=== PATIENT | male | born 1950 | race Caucasian/White ===

== ENCOUNTER → 2018-06-04 | Day surgery (SDC) | payer MEDICARE, BC ==
[~2018-06-04] MED LIST: Lactated Ringers 1,000 ML IV SCH; Propofol 200 MG/20 ML SDV IV ONE
[2018-06-04 10:59] VITALS: BP 123/64
--- NOTE | 2018-06-07 09:34 | OR ---
DATE OF OPERATION: 06/04/2018 PREOPERATIVE DIAGNOSIS: 1. GASTROESOPHAGEAL REFLUX DISEASE. 2. HISTORY OF COLON POLYPS. POSTOPERATIVE DIAGNOSIS: 1. GASTROESOPHAGEAL REFLUX DISEASE. 2. HISTORY OF COLON POLYPS. SURGEON: Obinna Reid MD PROCEDURE: 1. DIAGNOSTIC EGD WITH STANLEY. 2. DIAGNOSTIC COLONOSCOPIES WITH SNARE POLYPECTOMY X2. ANESTHESIA: MAC via CHEMISTRY TEACHER. COMPLICATIONS: None. SPECIMEN: 1. Antral STANLEY. 2. Two tubular adenomas, each less than 0.5 cm, see report. FINDINGS: 1. Normal full-length EGD. 2. Full-length colonoscopy. 3. Left-sided diverticulosis, moderate. 4. Tubular adenoma x2, each less than 0.5 cm. RECOMMENDATIONS: Medical therapy for patient's reflux. Recommend a 5-year followup colonoscopy given 2 polyps being removed. INDICATIONS: The patient has been having ongoing issues with reflux. Dr. French ordered diagnostic EGD. He also has a history of colon polyps. He is due for a 5-year followup scope. DESCRIPTION OF PROCEDURE: The patient was prepped and draped, placed in the left lateral decubitus position. A lubricated Olympus gastroscope was inserted over a bit, advanced to the cricopharyngeus area, and with ease intubated in the esophagus. The esophageal lining was completely benign. The Z-line was crisp and sharp at 39 cm. No distal esophagitis, stricturing, ulceration, or Muse's changes. There was no hernia present. I could not visualize any spontaneous reflux. The scope was advanced into the stomach, through the pylorus, and into the second portion of the duodenum. This and the duodenal bulb were benign. The scope was brought back into the stomach, retroflexed. The upper fundus and cardia were unremarkable. Upon straightening, a thorough evaluation of the rest of the fundus and antrum showed no signs of any polyps, masses, ulcerations, or peptic ulcer disease. A CLOtest was obtained. Air was suctioned, scope removed without complication. A lubricated Olympus colonoscope was then inserted and easily advanced to the cecum. We were able to directly visualize the ileocecal valve and appendiceal orifice. The bowel prep was excellent. Right in the cecal pouch, the patient had a stalked tubular adenoma easily removed with a snare and suctioned into polyp trap #1. It was approximately 0.5 cm in size. The rest of the ascending and transverse colon were benign. Starting at the splenic flexure, the patient has diverticular disease extending throughout the rest of the colon in the rectosigmoid junction, mild to moderate in severity. There was a second polyp along the proximal descending colon, flat, removed with a snare and suctioned into polyp trap #2 without difficulty as well. No further polyps, masses, ulcerations, or bleeding sites were seen. No vascular abnormalities or signs of colitis. The rectal vault was unremarkable. Retroflexion of scope in the rectum showed no anal lesions. Air was suctioned, scope removed without complication. STACEY/LUL /[id number]
== END ==
LOC: CC.SDS 08:31
PROVIDERS: ATTEND Family Medicine
DX: D12.0 Benign neoplasm of cecum (principal); D12.4 Benign neoplasm of descending colon; K57.30 Diverticulosis of large intestine without perforation or abscess without bleeding; K21.9 Gastro-esophageal reflux disease without esophagitis; I10 Essential (primary) hypertension; I25.10 Atherosclerotic heart disease of native coronary artery without angina pectoris; I25.2 Old myocardial infarction; I77.1 Stricture of artery; I65.29 Occlusion and stenosis of unspecified carotid artery; E04.1 Nontoxic single thyroid nodule; E55.9 Vitamin D deficiency, unspecified; E78.00 Pure hypercholesterolemia, unspecified; D64.9 Anemia, unspecified; M19.90 Unspecified osteoarthritis, unspecified site; M75.20 Bicipital tendinitis, unspecified shoulder; M75.51 Bursitis of right shoulder; M11.80 Other specified crystal arthropathies, unspecified site; N28.9 Disorder of kidney and ureter, unspecified; N40.0 Benign prostatic hyperplasia without lower urinary tract symptoms; Z95.1 Presence of aortocoronary bypass graft; Z86.010 Personal history of colon polyps; Z79.82 Long term (current) use of aspirin; Z79.02 Long term (current) use of antithrombotics/antiplatelets; Z79.899 Other long term (current) drug therapy
CPT/HCPCS: 00813; 45385; 87081; J2704; J7120